=== PATIENT | female | born 1985 | race Caucasian/White ===

== ENCOUNTER 2020-09-07 12:54 | Outpatient (REF) | payer BC, SELFPAY ==
--- NOTE | 2020-09-07 13:07 | EEG_ITS ---
24-hour ambulatory EEG. The waking background activity consists of a well-defined symmetrical 10 hertz low to moderate voltage posterior alpha intermixed anteriorly with low-voltage fast frequencies. Drowsiness is characterized by diffuse theta slowing. An abundance of artifacts are noted with muscle and eye blink artifacts in the anterior quadrants. The major portion of the recording is missing and there is a notation of moisture in the recorder suggesting that she may have gone and taken shower or bath with the recorder. The recording resumes the next morning. No paroxysmal discharges seen. No sleep stages were seen. IMPRESSION: This is an incomplete 24-hour EEG because of moisture in the recorder possibly from taking a shower. The recorded waking record shows no seizure activity and no abnormalities. MD KOFI Barr/TISH / [id number]
== END 2020-09-07 12:55 | disposition home or self-care (01) ==
LOC: HO.NEURO 12:54
PROVIDERS: Visit Provider Psychiatry & Neurology Neurology
DX: G40.909 Epilepsy, unspecified, not intractable, without status epilepticus (principal)
CPT/HCPCS: 95708